=== PATIENT | female | born 2000 | race Caucasian/White ===

== ENCOUNTER 2022-10-05 11:44 | Emergency (ER) | payer OTHER, SELFPAY ==
[2022-10-05 11:57] VITALS: BP 112/61; PULSE 78; RESP 18; TEMP 36.2; O2SAT 100
--- NOTE | 2022-10-05 12:13 | ED.URI ---
HPI - URI/Sore Throat General Chief Complaint: Upper Respiratory Infection Stated Complaint: sorethroat,congestion Time Seen by Provider: 10/05/22 12:02 Source: patient Mode of arrival: ambulatory Limitations: no limitations History of Present Illness HPI Narrative: Patient presents today with a 2 week history of sore throat, congestion, rhinorrhea, sneezing, cough, fatigue. Denies fever shortness of breath. She has tried no medication for symptoms prior to arrival. Patient is currently . She is a nonsmoker. Related Data Home Medications Medication Instructions Recorded Confirmed etonogestrel 68 mg subdermal See Rx Instructions .Route .COMPLEX 10/05/22 10/05/22 implant (Nexplanon) [id number] < 1 1 pkg PO DAILY 10/05/22 10/05/22 mg-iron oral combo pack Allergies Allergy/AdvReac Type Severity Reaction Status Date / Time Sulfa (Sulfonamide AdvReac Intermediate Nausea and Verified 10/05/22 12:05 Antibiotics) Vomiting Review of Systems Review of Systems: CONSTITUTIONAL: Denies body aches, fever, chills, or sweats.+ fatigue EYES: Denies visual changes, redness, or discharge. ENT: Denies otalgia.+ congestion, rhinorrhea, sore throat, sneezing CARDIOVASCULAR: Denies chest pain, palpitations, or edema. RESPIRATORY: Denies dyspnea.+ cough GASTROINTESTINAL: Denies abdominal pain, nausea, vomiting, or diarrhea. GENITOURINARY: Denies dysuria or hematuria. SKIN: Denies rash, itching, or wounds. MUSCULOSKELETAL: Denies back pain, joint pain, or myalgia. NEUROLOGIC: Denies headache, numbness, tingling, or weakness. PSYCH: Denies depression or anxiety. PMFSH Comments At time of signature, I have reviewed and agree with nursing past medical, surgical, social and family history unless otherwise noted. Please see nursing chart for further information. There is no relevant family history pertinent to the presenting complaint Exam Narrative: GENERAL: Well-appearing, well-nourished, and in no acute distress. HEAD: Normocephalic, atraumatic. EYES: EOMI. No redness or drainage. Conjunctivae normal. ENT: Mucous membranes pink and moist. Nares congested with rhinorrhea. TMs normal bilaterally. Throat normal. Uvula midline. NECK: Normal AROM. Supple. No lymphadenopathy. CHEST: No respiratory distress. Clear to auscultation. HEART: Regular rate and rhythm. No murmur appreciated. Normal peripheral pulses. EXTREMITIES: Normal range of motion. No edema. SKIN: Warm, dry, no rash. Capillary refill normal. Normal skin turgor. NEURO: No focal deficits. Alert and oriented x3. Gait steady. PSYCH: Normal affect. No signs of depression or anxiety. Course Course Level of Care: Express Care Visit Vital Signs Vital signs: Vital Signs Temperature 97.2 F L 10/05/22 11:57 Pulse Rate 78 10/05/22 11:57 Respiratory Rate 18 10/05/22 11:57 Blood Pressure 112/61 10/05/22 11:57 Pulse Oximetry 100 10/05/22 11:57 Oxygen Delivery Room Air 10/05/22 11:57 Temperature 97.2 F L 10/05/22 11:57 Pulse Rate 78 10/05/22 11:57 Respiratory Rate 18 10/05/22 11:57 Blood Pressure 112/61 10/05/22 11:57 Pulse Oximetry 100 10/05/22 11:57 Oxygen Delivery Room Air 10/05/22 11:57 Reviewed MDM - URI/Sore Throat MDM Narrative Medical decision making narrative: Symptoms consistent with sinusitis. Prescription for Augmentin sent to pharmacy. Anticipatory guidance given. Differential Diagnosis Differential diagnosis: Likely upper respiratory infection, sinusitis, viral infection and bronchitis Critical Care Time Critical Care Time Critical Care Time: No Discharge Plan Discharge Clinical Impression: Acute bacterial sinusitis Patient Disposition: Home, Self-Care Condition: Stable Instructions: Antibiotic Form, Sinusitis (ED) Additional Instructions: Please take the Augmentin as prescribed until gone. Take Tylenol or ibuprofen at home for pain if needed. F
== END 2022-10-05 12:20 | disposition home or self-care (01) ==
PROVIDERS: Emergency Provider Nurse Practitioner; PCP Family Medicine
DX: J01.90 Acute sinusitis, unspecified (principal); Z86.16 Personal history of COVID-19
CPT/HCPCS: 99213; G0463

== ENCOUNTER 2023-01-15 14:40 | Emergency (ER) | payer OTHER, SELFPAY ==
[2023-01-15 14:49] VITALS: BP 115/59; PULSE 57; RESP 16; TEMP 36.6; O2SAT 100
--- NOTE | 2023-01-15 14:56 | ED.EXTPRO ---
HPI - Extremity Problem General Chief complaint: Extremity Injury, Lower Stated complaint: Knee Pain/ Both Time Seen by Provider: 01/15/23 14:50 Source: patient Mode of arrival: ambulatory Limitations: no limitations History of Present Illness HPI Narrative: Alana is a 22-year-old female patient presenting to the clinic today with complaints of bilateral knee pain and left upper thigh muscle pain. She reports that the knee pain is been ongoing for 2 months. Did state that she had an injury to the right knee when she fell however she is not having pain in the area that she fell. States she is having pain to the medial and lateral aspect of bilateral knees as well as the left upper thigh. 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 States she does wear supportive shoes. She denies any back pain. She denies any saddle anesthesia or loss of bowel or bladder. Pain is worse after working all day. She is . Related Data Home Medications Medication Instructions Recorded Confirmed etonogestrel 68 mg subdermal See Rx Instructions .Route .COMPLEX 10/05/22 01/15/23 implant (Nexplanon) Allergies Allergy/AdvReac Type Severity Reaction Status Date / Time Sulfa (Sulfonamide AdvReac Intermediate Nausea and Verified 01/15/23 14:41 Antibiotics) Vomiting Review of Systems Review of Systems: Pertinent positives per HPI. Patient denies any fever, chills, rash, headache, visual changes, dizziness, cough, runny nose, sore throat, shortness of breath, chest pain, palpitations, nausea, vomiting, diarrhea, constipation, abdominal pain, or any urinary issues. PMFSH Comments At the time of my signature, I reviewed and agree with the nursing past medical, surgical, social, and family history. There is no relevant family history pertinent to the patient complaint. Exam Narrative: General: Well-developed, well nourished, in no apparent distress Head: Normocephalic, atraumatic. Cardio: Regular rate and rhythm, s1 and s2 normal, no murmur appreciated. Resp: Clear to auscultation bilaterally, no rhonchi, rales, wheezing or rubs. Musculoskeletal: No deformity, no crepitus with flexion/extension of the bilateral knees, tender to palpation over the medial and lateral bilateral knees, tenderness to palpation over the left quad musculature, grossly normal range of motion, muscle strength strong and equal, peripheral pulse strong, no edema, no cyanosis, normal gait and station Course Course Emergency Course: Portions of this record may have been created with voice recognition software. Level of Care: Express Care Visit Vital Signs Vital signs: Vital Signs Temperature 36.6 C 01/15/23 14:49 Pulse Rate 57 L 01/15/23 14:49 Respiratory Rate 16 01/15/23 14:49 Blood Pressure 115/59 L 01/15/23 14:49 Pulse Oximetry 100 01/15/23 14:49 Oxygen Delivery Room Air 01/15/23 14:49 Temperature 36.6 C 01/15/23 14:49 Pulse Rate 57 L 01/15/23 14:49 Respiratory Rate 16 01/15/23 14:49 Blood Pressure 115/59 L 01/15/23 14:49 Pulse Oximetry 100 01/15/23 14:49 Oxygen Delivery Room Air 01/15/23 14:49 Vital signs reviewed MDM - Extremity (Nontraumatic) MDM Narrative Medical decision making narrative: At the time of visit patient is resting on the exam table. I suspect the patient may be having acute knee pain due to inflammation of the ligaments. Also suspicious for quadriceps muscle strain. Will send in prescription for some approximate and have her follow-up with her PCP in 1 week if symptoms persist for further evaluation. Differential Diagnosis Differential diagnosis: Likely other (Muscle strain, arthritis, internal derangement of the knee, knee strain, knee fracture) Discharge Plan Discharge Clinical Impression: Acute pain of both knees Strain of quadriceps muscle Qualifiers: Encounter type: initial encounter Laterality: left Qualified Code(s): S76.112A - Strain of
== END 2023-01-15 15:02 | disposition home or self-care (01) ==
PROVIDERS: Emergency Provider Nurse Practitioner Family
DX: M25.561 Pain in right knee (principal); M25.562 Pain in left knee; S76.112A Strain of left quadriceps muscle, fascia and tendon, initial encounter; X58.XXXA Exposure to other specified factors, initial encounter; Z86.16 Personal history of COVID-19
CPT/HCPCS: 99213; G0463

== ENCOUNTER 2023-04-16 12:50 | Emergency (ER) | payer OTHER, SELFPAY ==
[2023-04-16 12:59] VITALS: BP 111/61; PULSE 78; RESP 18; TEMP 36.2; O2SAT 100
--- NOTE | 2023-04-16 13:00 | ED.EAR ---
HPI - Ear Problem General Chief complaint: Ear Stated complaint: Lt Ear Irritation Time Seen by Provider: 04/16/23 13:00 Source: patient, RN notes reviewed and old records reviewed Mode of arrival: ambulatory Limitations: no limitations History of Present Illness HPI Narrative: 22-year-old female presents to the [facility] with complaints of left ear pain for 6 days. Had been trying it ?popped the ear and use Q-tips with no relief. Denies taking any medication due to her breast feeding. Related Data Home Medications Medication Instructions Recorded Confirmed etonogestrel 68 mg subdermal See Rx Instructions .Route .COMPLEX 10/05/22 04/16/23 implant (Nexplanon) Allergies Allergy/AdvReac Type Severity Reaction Status Date / Time Sulfa (Sulfonamide AdvReac Intermediate Nausea and Verified 04/16/23 12:55 Antibiotics) Vomiting Review of Systems Review of Systems: All systems reviewed & are unremarkable except as noted in HPI and below Constitutional: Constitutional: Reports no additional constitutional complaints Eyes: Eyes: Reports no additional eye complaints ENT: Reports as per HPI and Reports otalgia (Left) Cardiovascular: Cardiovascular: Reports no additional cardiovascular complaints, Denies chest pain and Denies dyspnea Respiratory: Respiratory: Reports no additional respiratory complaints, Denies chest congestion, Denies cough and Denies dyspnea Gastrointestinal: Gastrointestinal: Reports no additional gastrointestinal complaints, Denies abdominal pain, Denies nausea and Denies vomiting Musculoskeletal: Musculoskeletal: Reports no additional musculoskeletal complaints Integumentary/Breasts: Skin/Breast: Reports system reviewed and no additional complaints, except as docu Neurologic: Reports system reviewed and no additional complaints, except as documented Psychiatric: Psychiatric: Reports no additional psychiatric complaints Allergic/Immunologic: Allergic/Immunologic: Reports no additional allergic/immunologic complaints PMFSH Comments At the time of my signature, I reviewed and agree with the nursing past medical, surgical, social, and family history. There is no relevant family history pertinent to the patient complaint. Exam Const: General: cooperative, healthy appearing, comfortable, no acute distress, well developed, alert and well nourished Nutritional Appearance: well nourished Orientation/consciousness: patient oriented x3 Limitations: no limitations HENMT: Head: normal to inspection Ears: hearing grossly normal bilaterally, external ears normal and TM abnormal bulging on the left and with fluid behind the TM bilateral (Greater on the left the right); not erythematous and with no loss of landmarks Face/Nose/Sinus: Normal external nose present, Normal nares present, Normal nasal mucous membranes and turbinates present and normal facial exam Face and sinus: normal facial exam Mouth: Yes Normal oral and palatal mucosa present, Yes lip normal and Yes moist mucous membranes Throat: posterior oropharynx normal and uvula midline Eyes: General: appearance normal, both eyes and all related structures Alignment and Position: alignment normal Periorbital: periorbital findings normal Pupils: Equal, round and reactive pupils present EOM: EOMs intact bilaterally Neck: Neck: normal visual inspection, full ROM, no lymphadenopathy and no meningeal signs Chest: Chest palpation & inspection: normal inspection of the chest Resp: Effort & Inspection: normal respiratory effort and able to speak in complete sentences Cardio: Rate: regular rate Rhythm: regular rhythm Back/Spine/Pelvis: Cervical Spine: cervical ROM normal Skin: General skin exam: normal color and no rashes or lesions noted Lesions: no lesions Rashes: no rashes Wounds: no wounds Neuro: General: patient oriented x3, gait normal, tone normal, moves all extremities and no meningeal signs Cranial nerves: Yes Equal, round and reactive
== END 2023-04-16 13:14 | disposition home or self-care (01) ==
PROVIDERS: Emergency Provider Nurse Practitioner; PCP Family Medicine
DX: H65.02 Acute serous otitis media, left ear (principal); Z86.16 Personal history of COVID-19
CPT/HCPCS: 99211; G0463

== ENCOUNTER 2023-10-01 17:18 | Emergency (ER) | payer OTHER, SELFPAY ==
[2023-10-01 18:04] VITALS: BP 118/62; PULSE 80; RESP 16; TEMP 36.7; O2SAT 100
--- NOTE | 2023-10-01 18:05 | ED.FEMALEGU ---
HPI - Female Genitourinary General Chief complaint: Abdominal Pain Stated complaint: Abdominal Pain Source: patient and RN notes reviewed Mode of arrival: ambulatory Limitations: no limitations History of Present Illness HPI Narrative: 23-year-old female presented for complaint of lower abdominal pain for 2 days. She states early this morning she rated the pain 8/10, she could stand up from the floor. The pain subsided after taking 600 mg of ibuprofen. She notified her OBGYN advised evaluation for possible ovarian cyst etc.. Currently rates pain 4/10. LBM today. LMP 09/23/23. Patient denies hematuria, dysuria, vaginal discharge, nausea, vomiting, abdominal pain, flank pain, constipation, diarrhea, fevers or chills. Denies concern for or STDs. Pt on Nexplanon. Related Data Home Medications Medication Instructions Recorded Confirmed etonogestrel 68 mg subdermal See Rx Instructions .Route .COMPLEX 10/05/22 10/01/23 implant (Nexplanon) Allergies Allergy/AdvReac Type Severity Reaction Status Date / Time Sulfa (Sulfonamide AdvReac Intermediate Nausea and Verified 10/01/23 18:11 Antibiotics) Vomiting Review of Systems Review of Systems: CONSTITUTIONAL: Denies body aches, fever, chills CARDIOVASCULAR: Denies chest pain, palpitations, or edema. RESPIRATORY: Denies cough or dyspnea. GASTROINTESTINAL: Endorses abdominal pain, Denies nausea, vomiting, diarrhea, hematochezia, melena, hematemesis GENITOURINARY: Denies dysuria, hematuria, or CVA tenderness. SKIN: Denies rash, itching, or wounds. MUSCULOSKELETAL: Denies back pain, joint pain, or myalgia. NEUROLOGIC: Denies headache, numbness, tingling, or weakness. All systems reviewed & are unremarkable except as noted in HPI and below [facility] Comments At time of signature, I have reviewed and agree with nursing past medical, surgical, social and family history unless otherwise noted. Please see nursing chart for further information. There is no relevant family history pertinent to the presenting complaint Exam Narrative: GENERAL: Well-appearing, and in no acute distress. ENT: Mucous membranes pink and moist. CHEST: No respiratory distress. Clear to auscultation. HEART: Regular rate and rhythm. No murmur appreciated. Normal peripheral pulses. ABDOMEN: abd soft, nondistended, normal active bowel sounds. Nontender abdomen; No guarding, rebound tenderness, asymmetry or rigidity. EXTREMITIES: Normal range of motion. No edema. SKIN: Warm, dry, no rash. Capillary refill normal. Normal skin turgor. NEURO: No focal deficits. Alert and oriented x3. PSYCH: Normal affect. Course Course Emergency Course: Patient is aware of diagnosis, understands and agrees to treatment plan. Anticipatory guidance given. Patient agrees to follow-up as directed and is aware of reasons to seek care at the emergency department. Portions of this record may have been created with voice recognition software Level of Care: Express Care Visit Vital Signs Vital signs: Vital Signs Temperature 98.0 F 10/01/23 18:04 Pulse Rate 80 10/01/23 18:04 Respiratory Rate 16 10/01/23 18:04 Blood Pressure 118/62 10/01/23 18:04 Pulse Oximetry 100 10/01/23 18:04 Oxygen Delivery Room Air 10/01/23 18:04 Temperature 98.0 F 10/01/23 18:04 Pulse Rate 80 10/01/23 18:04 Respiratory Rate 16 10/01/23 18:04 Blood Pressure 118/62 10/01/23 18:04 Pulse Oximetry 100 10/01/23 18:04 Oxygen Delivery Room Air 10/01/23 18:04 MDM - Female Genitourinary MDM Narrative Medical decision making narrative: Discussed physical exam findings and urine result. Advised ER transfer for further evaluation of abdominal pain. Pt declines to go at this time, stating she will go in the morning or else tonight if pain worsens. Discussed possible etiologies of symptoms, pt is aware of the risk a/w her symptoms but declines ER at this time. Pt is in stable condition, min
== END 2023-10-01 18:37 | disposition home or self-care (01) ==
PROVIDERS: Emergency Provider Nurse Practitioner Family; PCP Family Medicine
DX: R10.30 Lower abdominal pain, unspecified (principal); Z86.16 Personal history of COVID-19
CPT/HCPCS: 81003; 87086; 99213; G0463